=== PATIENT | female | born 1980 | race Caucasian/White ===

== ENCOUNTER 2017-12-05 19:28 | Outpatient (RCR) | payer BC ==
[~2017-12-05] VITALS: Ht 165.1 cm; Wt 62.0 kg
[2017-12-06] VITALS (9 sets, daily range): BP systolic 126–142; BP diastolic 78–87; PULSE 78–93; TEMP 98–9838
[2017-12-06] MEDS ORDERED: NATURAL IRON65 MG PO (09:35)
[2017-12-06 15:02] LABS: HEMATOCRIT 31.8 % (37.0-47.0); HEMOGLOBIN 9.4 g/dl (12.5-16.0)
== END 2017-12-06 15:35 | disposition home or self-care (01) ==
LOC: EUO 12-06 08:00
PROVIDERS: Family Medicine
DX: D64.9 Anemia, unspecified (principal)
CPT/HCPCS: J7050; P9016